=== PATIENT | female | born 1940 | race Caucasian/White ===

== ENCOUNTER 2018-12-31 22:04 | Emergency (ER) | payer MEDICARE ==
[2018-12-31] MEDS ORDERED: Sodium Chloride 0.9% 10 ML Syringe FLUSH PRN (22:29)
[2018-12-31] MEDS ORDERED: Sodium Chloride 0.9% 2.5 ML Syringe FLUSH PRN (22:29)
[2018-12-31] MEDS ORDERED: Metoprolol Tartrate 5 MG/5 ML SDV IVPUSH ONE (22:29)
[2018-12-31] MEDS ORDERED: Aspirin 81 MG Tab.Chew PO ONE (22:30)
[2018-12-31] MEDS ORDERED: Sodium Chloride 0.9% 500 ML IV SCH (22:30)
--- NOTE | 2018-12-31 22:33 | EDM.PDOC ---
ED HPI GENERAL MEDICAL PROBLEM - General Chief Complaint: Chest Pain Stated Complaint: HBP Time Seen by Provider: 12/31/18 22:21 - History of Present Illness INITIAL COMMENTS - FREE TEXT/NARRATIVE: HISTORY AND PHYSICAL: History of present illness: Patient is a 78-year-old female who lives in [place] and is here visiting her son who is ill and presents with complaints of palpitations and chest pain that started this evening after an argument with her family member. The patient says she's been here for several months due to her son's illness and this evening things escalated and they had a verbal argument and she got very excited and upset and felt palpitations and chest pain which was diffuse across her chest. The patient sees a provider back home in [place] and is on metoprolol succinate 50 mg a day and she has been out of the prescription for 2 weeks. She says she' s been on that medication for many years. She also admits that she drinks a lot of soda pop and does not hydrate. She is not short of breath and she has no abdominal pain nausea vomiting or diarrhea and has been making urine. Currently in the ED she feels calmer but still very tearful when describing recent events. She said that she probably needs to go home as the stress is been very bad here. Currently she is saying that she has very minimal discomfort and that her palpitations are improving. The patient is not having any numbness tingling lightheadedness or dizziness and has no head neck or back pain. She has no focal weakness. The patient has also told nursing that she has Ativan 1 mg that she can take twice a day as needed and she has run out of that and she thinks that if she was able to take that prior to this evening's events she might not have felt him to rheumatology that she is here for currently Review of systems: As per history of present illness and below otherwise all systems reviewed and negative. Past medical history: As per history of present illness and as reviewed below otherwise noncontributory. Surgical history: As per history of present illness and as reviewed below otherwise noncontributory. Social history: No reported history of drug or alcohol abuse. Family history: As per history of present illness and as reviewed below otherwise noncontributory. Physical exam: General: Well-developed well-nourished female who is nontoxic and interactive. Are noted by me HEENT: Atraumatic, normocephalic, negative for conjunctival pallor or scleral icterus, mucous membranes moist, throat clear, neck supple, nontender, trachea midline. Lungs: Clear to auscultation, breath sounds equal bilaterally, chest nontender. Heart: S1S2, regular rhythm slightly tachycardic rate on my evaluation but it improves as she calms down, no overt murmurs, negative for clicks, rubs, or JVD. Abdomen: Soft, nondistended, nontender. Negative for masses or hepatosplenomegaly. Negative for costovertebral tenderness. Pelvis: Stable nontender. Genitourinary: Deferred. Rectal: Deferred. Extremities: Atraumatic, negative for cords or calf pain. Neurovascular unremarkable. No pedal edema Neuro: Awake, alert, oriented. Cranial nerves II through XII unremarkable. Cerebellum unremarkable. Motor and sensory unremarkable throughout. Exam nonfocal. Diagnostics: EKG CBC CMP troponin UA with reflex culture chest x-ray UA was canceled as the patient did not give a urine sample Therapeutics: IV O2 monitor IV fluids aspirin metoprolol IV metoprolol by mouth, Ativan by mouth I will give the patient a prescription for her metoprolol succinate as well as a few Ativan as she says she is under a great deal of stress with her son who is in hospice care and the remainder of the family. Her blood pressure is still elevated, 216/114, but she says she is feeling much better and she says that her other son is here to pick her up and she would like to go. She is aware of my concerns with that elevated blood pressure and declines further intervention at this time. She says that when she gets back on her medication she will be doing much better. She is aware of the chest x-ray with the small right lung nodule and she will follow-up at home in [place]. Impression: Hypertension, medication refill; episode of atypical chest pain and palpitations , acute anxiety reaction stable Definitive disposition and diagnosis as appropriate pending reevaluation and review of above. chest pain Pain Score (Numeric/FACES): 5 - Related Data Allergies Allergy/AdvReac Type Severity Reaction Status Date / Time No Known Allergies Allergy Verified 12/31/18 22:18 Home Meds: Home Meds Metoprolol Tartrate 50 mg PO DAILY 12/31/18 [History] Past Medical History HEENT History: Reports: None Cardiovascular History: Reports: Hypertension Respiratory History: Reports: None Gastrointestinal History: Reports: None Genitourinary History: Reports: None [employer] History: Reports: Musculoskeletal History: Reports: None Neurological History: Reports: None Psychiatric History: Reports: None Endocrine/Metabolic History: Reports: None Hematologic History: Reports: None Immunologic History: Reports: None Oncologic (Cancer) History: Reports: None Dermatologic History: Reports: None - Infectious Disease History Infectious Disease History: Reports: None - Past Surgical History Head Surgeries/Procedures: Reports: None Social & Family History - Family History Family Medical History: Noncontributory ED ROS GENERAL - Review of Systems Review Of Systems: ROS reveals no pertinent complaints other than HPI. ED EXAM, GENERAL - Physical Exam Exam: See Below (See dictation) Course - Vital Signs Last Recorded V/S: Last Vital Signs Temp 37.2 C 12/31/18 22:18 Pulse 86 12/31/18 23:42 Resp 20 12/31/18 22:18 BP 241/114 H 12/31/18 23:42 Pulse Ox 96 12/31/18 23:42 - Orders/Labs/Meds Orders: Active Orders 24 hr Category Date Time Status Cardiac Monitoring [RC] . DIRECTED Care 12/31/18 22:28 Active EKG Documentation Completion [RC] STAT Care 12/31/18 22:28 Active Oxygen Therapy, ED [RC] ASDIRECTED Care 12/31/18 22:28 Active Pulse Oximetry [RC] ASDIRECTED Care 12/31/18 22:29 Active UA RFX EVERARDO AND CULT IF INDIC [URIN] Stat Lab 12/31/18 22:29 Stop Req Sodium Chloride 0.9% [Normal Saline] 500 ml Med 12/31/18 22:30 Active IV STAT Sodium Chloride 0.9% [Saline Flush] Med 12/31/18 22:29 Active 10 ml FLUSH ASDIRECTED PRN Sodium Chloride 0.9% [Saline Flush] Med 12/31/18 22:29 Active 2.5 ml FLUSH ASDIRECTED PRN Saline Lock Insert [OM.PC] Stat Oth 12/31/18 22:28 Ordered Medication Orders Sodium Chloride (Normal Saline) 500 mls @ 999 mls/hr IV STAT LACY Last Admin: 12/31/18 22:54 Dose: 999 mls/hr Sodium Chloride (Saline Flush) 10 ml FLUSH ASDIRECTED PRN PRN Reason: Keep Vein Open Sodium Chloride (Saline Flush) 2.5 ml FLUSH ASDIRECTED PRN PRN Reason: Keep Vein Open Labs: Laboratory Tests 12/31/18 12/31/18 Range/Units 22:35 22:35 WBC 7.57 (4.0-11.0) K/uL RBC 5.23 (4.30-5.90) M/uL Hgb 16.4 H (12.0-16.0) g/dL Hct 47.4 H (36.0-46.0) % MCV 90.6 (80.0-98.0) fL MCH 31.4 (27.0-32.0) pg MCHC 34.6 (31.0-37.0) g/dL RDW Std Deviation 46.5 (28.0-62.0) fl RDW Coeff of Don 14 (11.0-15.0) % Plt Count 191 (150-400) K/uL MPV 10.10 (7.40-12.00) fL Neut % (Auto) 42.8 L (48.0-80.0) % Lymph % (Auto) 44.8 H (16.0-40.0) % Blount % (Auto) 10.0 (0.0-15.0) % Eos % (Auto) 2.0 (0.0-7.0) % Baso % (Auto) 0.4 (0.0-1.5) % Neut # (Auto) 3.2 (1.4-5.7) K/uL Lymph # (Auto) 3.4 H (0.6-2.4) K/uL Blount # (Auto) 0.8 (0.0-0.8) K/uL Eos # (Auto) 0.2 (0.0-0.7) K/uL Baso # (Auto) 0.0 (0.0-0.1) K/uL Nucleated RBC % 0.0 /100WBC Nucleated RBCs # 0 K/uL Sodium 140 (136-145) mmol/L Potassium 3.4 L (3.5-5.1) mmol/L Chloride 104 (98-107) mmol/L Carbon Dioxide 19.9 L (21.0-32.0) mmol/L BUN 15 (7.0-18.0) mg/dL Creatinine 1.5 H (0.6-1.0) mg/dL Est Cr Clr Drug Dosing TNP Estimated GFR (MDRD) 33.8 ml/min Glucose 106 (74-106) mg/dL Calcium 9.4 (8.5-10.1) mg/dL Total Bilirubin 0.6 (0.2-1.0) mg/dL AST 31 (15-37) IU/L ALT 23 (14-63) IU/L Alkaline Phosphatase 80 (46-116) U/L Troponin I < 0.050 (0.000-0.056) ng/mL Total Protein 7.4 (6.4-8.2) g/dL Albumin 4.4 (3.4-5.0) g/dL Globulin 3.0 (2.6-4.0) g/dL Albumin/Globulin Ratio 1.5 (0.9-1.6) Meds: Medications Generic Name Dose Route Start Last Admin Trade Name Freq PRN Reason Stop Dose Admin Sodium Chloride 500 mls @ 999 mls/hr 12/31/18 22:30 12/31/18 22:54 Normal Saline IV 999 mls/hr STAT LACY Administration Sodium Chloride 10 ml 12/31/18 22:29 Saline Flush FLUSH ASDIRECTED PRN Keep Vein Open Sodium Chloride 2.5 ml 12/31/18 22:29 Saline Flush FLUSH ASDIRECTED PRN Keep Vein Open Discontinued Medications Generic Name Dose Route Start Last Admin Trade Name Freq PRN Reason Stop Dose Admin Aspirin 324 mg 12/31/18 22:30 12/31/18 22:55 Aspirin PO 12/31/18 22:31 324 mg ONETIME ONE Administration Metoprolol Tartrate 5 mg 12/31/18 22:29 12/31/18 22:50 Lopressor IVPUSH 12/31/18 22:30 5 mg ONETIME ONE Administration Departure - Departure Time of Disposition: 23:50 Disposition: Home, Self-Care 01 Condition: Good Clinical Impression: Medication refill, Atypical chest pain, Palpitations Hypertension Qualifiers: Hypertension type: unspecified Qualified Code(s): I10 - Essential (primary) hypertension - Discharge Information Referrals: PCP,None [Primary Care Provider] - Forms: ED Department Discharge Additional Instructions: The following information is given to patients seen in the emergency department who are being discharged to home. This information is to outline your options for follow-up care. We provide all patients seen in our emergency department with a follow-up referral. The need for follow-up, as well as the timing and circumstances, are variable depending upon the specifics of your emergency department visit. If you don't have a primary care physician on staff, we will provide you with a referral. We always advise you to contact your personal physician following an emergency department visit to inform them of the circumstance of the visit and for follow-up with them and/or the need for any referrals to a consulting specialist. The emergency department will also refer you to a specialist when appropriate. This referral assures that you have the opportunity for followup care with a specialist. All of these measure are taken in an effort to provide you with optimal care, which includes your followup. Under all circumstances we always encourage you to contact your private physician who remains a resource for coordinating your care. When calling for followup care, please make the office aware that this follow-up is from your recent emergency room visit. If for any reason you are refused follow-up, please contact the emergency department at and ask to speak to the emergency department charge nurse. [facility] Primary care- Internal Medicine and Family [address] [address] Please call and schedule a follow-up appointment with your provider back home in [place] or with one of our providers if you stay here locally. Please fill your prescription for your metoprolol and start dosing as soon as possible. Please try to reduce stress and reduce your soda pop intake as well as extra sodium in her diet. Return to ER as needed and as discussed - My Orders Last 24 Hours: My Active Orders 12/31/18 22:28 Cardiac Monitoring [RC] . DIRECTED EKG Documentation Completion [RC] STAT Oxygen Therapy, ED [RC] ASDIRECTED Saline Lock Insert [OM.PC] Stat 12/31/18 22:29 Pulse Oximetry [RC] ASDIRECTED UA RFX EVERARDO AND CULT IF INDIC [URIN] Stat Sodium Chloride 0.9% [Saline Flush] 10 ml FLUSH ASDIRECTED PRN Sodium Chloride 0.9% [Saline Flush] 2.5 ml FLUSH ASDIRECTED PRN 12/31/18 22:30 Sodium Chloride 0.9% [Normal Saline] 500 ml IV STAT - Assessment/Plan Last 24 Hours: My Active Orders 12/31/18 22:28 Cardiac Monitoring [RC] . DIRECTED EKG Documentation Completion [RC] STAT Oxygen Therapy, ED [RC] ASDIRECTED Saline Lock Insert [OM.PC] Stat 12/31/18 22:29 Pulse Oximetry [RC] ASDIRECTED UA RFX EVERARDO AND CULT IF INDIC [URIN] Stat Sodium Chloride 0.9% [Saline Flush] 10 ml FLUSH ASDIRECTED PRN Sodium Chloride 0.9% [Saline Flush] 2.5 ml FLUSH ASDIRECTED PRN 12/31/18 22:30 Sodium Chloride 0.9% [Normal Saline] 500 ml IV STAT
[2018-12-31 23:38] LABS: CHLORIDE,CL 104 mmol/L (98-107); SODIUM,NA 140 mmol/L (136-145)
--- NOTE | 2018-12-31 23:46 | CR ---
Indication: Chest pain, shortness of breath Technique: Chest 1 view Comparison: None Findings: Normal cardiomediastinal silhouette. Normal pulmonary vasculature. No effusion or pneumothorax. 9 mm round density in the right perihilar region. No acute osseous abnormality. Impression: : No acute abnormality. 9 mm round density in the right perihilar region may represent a pulmonary nodule. Recommend nonemergent chest CT for further evaluation. Dictated by Faye Marquez MD @ Dec 31 2018 11:45PM Signed by Dr. Faye Marquez @ Dec 31 2018 11:45PM
[2018-12-31] MEDS ORDERED: LORazepam 1 MG Tab PO ONE (23:53)
[2018-12-31] MEDS ORDERED: Metoprolol Succinate 50 MG Tab.ER PO ONE (23:53)
== END 2019-01-01 00:12 | disposition home or self-care (01) ==
LOC: MW.ED 22:04
DX: R07.89 Other chest pain (principal); F41.1 Generalized anxiety disorder; I10 Essential (primary) hypertension; R00.2 Palpitations; Z76.0 Encounter for issue of repeat prescription; Z79.899 Other long term (current) drug therapy
CPT/HCPCS: 36415; 71045; 80053; 84484; 85025; 93005; 96361; 96374; 99285; A9270; J3490; J7040; 99284